=== PATIENT | female | born 1940 | race Caucasian/White ===

== ENCOUNTER 2019-12-10 20:00 | Emergency (ER) | payer MEDICARE, OTHER, SELFPAY ==
[2019-12-10 20:00] VITALS: BP 125/93; PULSE 121; RESP 35; TEMP 36.7; O2SAT 89
--- NOTE | 2019-12-10 20:07 | DI.RAD.S_ITS ---
PROCEDURE: XR CHEST 1V INDICATIONS: dyspnea, sob, cough, hx of COPD TECHNIQUE: One view of the chest was acquired. COMPARISON: [facility], , CHEST 1 VIEW, 02/05/2015, 19:46. [facility], , CHEST 1 VIEW, 11/10/2012, 20:53. FINDINGS: Surgical changes and devices: Pacemaking device and dual chamber leads normal. Lungs and pleura: Lungs are abnormal, with asymmetric alveolar infiltration on the right best seen at the right mid and lower lung in a pattern most consistent with pneumonia. No pleural effusions or pneumothorax. Mediastinum: Mediastinal contours appear normal. Heart size is normal. Bones and chest wall: No suspicious bony lesions. Overlying soft tissues appear unremarkable. IMPRESSION: Right mid and lower lung pneumonia, pacemaking device and dual chamber leads normal. Dictated by: Gorge Hoffman M.D. on 12/10/2019 at 20:50 Approved by: Gorge Hoffman M.D. on 12/10/2019 at 20:51
[2019-12-10] MEDS: ALBUTEROL/IPRATROPIUM 3 ML AMPUL INH (20:19)
[2019-12-10 20:20] VITALS: PULSE 111; RESP 24; O2SAT 95
--- NOTE | 2019-12-10 21:00 | DI.RAD.S_ITS ---
PATIENT NAME: TONYA LAST : 1940 EXAM DATE: 12/10/2019 20:31 ORD. : HANY FERGUSON CC: MODALITY: CR PATIENT TYPE: ER CONTRAST MEDIA: STATION ID: [id number] FLUORO TIME: PROCEDURE: XR CHEST 1V INDICATIONS: Shortness of breath TECHNIQUE: One view of the chest was acquired. COMPARISON: [facility], , CHEST 1 VIEW, 02/05/2015, 19:46. FINDINGS: Surgical changes and devices: None. Lungs and pleura: Lungs are abnormal with a generalized interstitial prominence and this has not definitely changed from 2015. This may reflect chronic CHF sequela. No pleural effusions or pneumothorax. Mediastinum: Mediastinal contours appear normal. Heart size is mildly enlarged, globally, previously the case. Bones and chest wall: No suspicious bony lesions. Overlying soft tissues appear unremarkable. IMPRESSION: Mild chronic CHF pattern without focal pneumonia or definite acute CHF superimposed. Given the new symptomatology, however, there likely is some degree of pulmonary edema in this patient. Dictated by: Gorge Hoffman M.D. on 12/10/2019 at 21:22 Approved by: Gorge Hoffman M.D. on 12/10/2019 at 21:23
[2019-12-10 21:03] LABS: Alanine Aminotransferase 40 IU/L (<35); Albumin 3.9 g/dL (3.5-5.0); Albumin Globulin Ratio 1.2 (1.0-2.8); Alkaline Phosphatase 139 U/L (38-126); Aspartate Aminotransferase 64 IU/L (14-36); BUN Creatinine Ratio 29.4 (6-22); Bilirubin Total 1.4 mg/dL (0.2-1.3); Blood Urea Nitrogen 47 mg/dL (7-17); Calcium 9.3 mg/dL (8.4-10.2); Carbon Dioxide 26 mmol/L (22-32); Chloride 99 mmol/L (98-107); Creatine Kinase 191 U/L (30-135); Globulin 3.2 g/dL (1.7-4.1); Glucose 117 mg/dL (80-110); HEMOLYSIS < 15 (0-50); Potassium 4.8 mmol/L (3.4-5.1); Sodium 136 mmol/L (137-145); Total Protein 7.1 g/dL (6.3-8.2)
[2019-12-10 21:06] LABS: Lipase < 10 U/L (23-300)
[2019-12-10 21:16] LABS: Lactate (Lactic Acid) 2.7 mmol/L (0.7-2.1)
[2019-12-10 21:18] VITALS: PULSE 105; RESP 23; O2SAT 92
[2019-12-10] MEDS: ALBUTEROL 2.5 MG/3 ML NEB (ADULT) 10 MG INH (21:18)
[2019-12-10 21:19] LABS: CKMB % Relative Index 1.1 % (1.5-5.0); Creatine Kinase MB 2.04 ng/mL (<2.37)
[2019-12-10] MEDS: methylPREDNISolone 125 MG/2 ML VIAL IV (21:20)
[2019-12-10] MEDS: SODIUM CHLORIDE 0.9% 1,000 ML 100 ML IV (21:20)
--- NOTE | 2019-12-10 21:24 | ED_ITS ---
HPI - SOB/Dyspnea <MARTY Mendoza - Last Filed: 12/11/19 05:03> General Chief Complaint: Shortness of Breath/Dyspnea Stated Complaint: COPD,coughing Time Seen by Provider: 12/10/19 20:07 Source: patient and family Mode of arrival: Wheelchair Limitations: no limitations History of Present Illness HPI Narrative: This is a 79-year-old female, former smoker, who presents to ED with her daughter from home with chief complain of short of breath, wheezing and nasty productive cough. Patient has history of non-O2 dependent COPD, insulin-dependent diabetes, and heart failure. Patient was exposed to family member who had cold symptoms a week ago and started cough which became worse last 2-3 days as non-stop coughing last night. Patient reports subjective fever as hot and sweaty and chills. Patient uses Advair for her maintenance COPD medication and reports used nebulizer treatment at home once a day for last couple of days. Daughter reports patient has decreased appetite and feeling weak. Patient has history of urinary urgency and has been limiting fluid intake due to this and not feeling thirsty. Patient received flu immunization about 10 days ago. Related Data Home Medications Medication Instructions Recorded Confirmed LEVOTHYROXINE SODIUM 100 mcg PO QDAY@0600 #0 11/10/12 POTASSIUM CHLORIDE (MICRO-K) 10 meq PO BID #0 11/10/12 simvastatin [Zocor] 20 mg PO HS #0 11/10/12 telmisartan-hydrochlorothiazid 1 tab PO QDAY #0 11/10/12 [Micardis HCT] Lantus U-100 Insulin 40 unit SUBCUT DAILY #10 ml 02/28/13 aspirin 81 mg PO QDAY #0 02/28/13 carvedilol [Coreg] 12.5 mg PO BID #0 02/28/13 fluticasone propion-salmeterol 1 puff INH BID #60 dose 02/28/13 [Advair Diskus] furosemide [Lasix] 20 mg PO BID #0 02/28/13 carvedilol 12/10/19 Allergies Allergy/AdvReac Type Severity Reaction Status Date / Time AMADO Inhibitors Allergy Unknown Verified 12/10/19 20:14 meloxicam Allergy Unknown Verified 12/10/19 20:13 Sulfa (Sulfonamide Allergy Unknown Verified 12/10/19 20:13 Antibiotics) Review of Systems <MARTY Mendoza - Last Filed: 12/11/19 05:03> Review of Systems Narrative: General: Reports fever, chills, fatigue, malaise, sweats. HEENT: Denies sinus pain, ear pain, sore throat, difficulty swallowing, dizziness, hoarse voice. Respiratory: See HPI Cardiovascular: Denies chest pain, palpitations, orthopnea, edema. Gastrointestinal: Denies nausea, vomiting, abdominal pain, diarrhea, constipation, melena. : Reports occasional urinary urgency and incontinence. Denies dysuria, frequency, hematuria, urinary retention. Musculoskeletal: Denies weakness, joint pain or bony pain. Skin: Denies rash, skin lesions, or other. Neurologic: Denies weakness, headache, numbness, change in speech, confusion, seizures, incoordination. Psychiatric: No concerning psychosocial issues. 12-point review of systems is negative except for those stated above. Patient History <MARTY Mendoza - Last Filed: 12/11/19 05:03> Medical History CHF (congestive heart failure) (Acute) Diabetes (Acute) High cholesterol (Acute) Hypertension (Acute) Hypothyroid (Acute) Social History Smoking Status: Former smoker Smoking Status: Former smoker alcohol intake frequency: 0-2 drinks per day Substance Use Type: does not use Exam <MARTY Mendoza - Last Filed: 12/11/19 05:03> Narrative Exam Narrative: GEN: Alert, oriented x 3, well-nourished, weak appearing and in moderate respiratory distress. Head: Normal cephalic, atraumatic. No scalp or temporal tenderness, palpable mass or rash. EYES: Pupils are equal, round, and reactive to light and accommodation. Extraocular muscles are intact bilaterally. There is no subconjunctival hemorrhage, exudate and sclera non-icteric. ENT: Bilateral auditory canals and tympanic membranes clear. Hearing grossly intact. Nose without bleeding, purulent discharge or deviation. Facial sinuses nontender to palpate. Mucous membrane moist, no mucosal lesion. Throat without erythema, tonsillar hypertrophy or exudate. Uvula in midline, airway patent. Neck: Trachea in midline. No JVD, non-tender without lymphadenopathy. No masses or thyroid megaly. Supple, non-tender and no meningeal signs. CARDIAC: Normal regular rate and A flutter rhythm without murmurs, gallops, or rubs. No chest wall tenderness. +1 peripheral edema and pallor with no cyanosis. Capillary refill is less than 2 seconds. RESPIRATORY: Audiable wheezing and wheez to ascultate in all lobes. Frequent nonproductive cough, no rales, or rhonchi. No stridor, moderate respiratory inc rease work of breathing with tachypnea and difficulty completing a sentence. ABD: Abdomen soft, nontender and non-distended. No guarding or rebound tenderness to palpate. Bowel sounds are normal in all 4 quadrants. There is no palpable masses or organomegaly. EXT: Full painless ROM of all extremities with no loss of sensation, strength, effusion or edema. SKIN: Warm, dry, normal color for patient. No erythema, lesions or rash over visible areas. BACK: Nontender without deformity or crepitance. No flank tenderness. NEUROLOGICAL: Alert and oriented to place, time and person. Sensation and motor function intact bilaterally. No facial droops, dysphasia. PSYCHIATRIC: Good judgement and reason, without hallucinations, abnormal affect or abnormal behaviors during the examination. Initial Vital Signs Initial Vital Signs: Vital Signs Temperature 98.1 F 12/10/19 20:00 Pulse Rate 121 H 12/10/19 20:00 Respiratory Rate 35 H 12/10/19 20:00 Blood Pressure 125/93 H 12/10/19 20:00 Pulse Oximetry 89 L 12/10/19 20:00 <[address] DO - Last Filed: 12/11/19 05:28> Initial Vital Signs Initial Vital Signs: Vital Signs Temperature 98.1 F 12/10/19 20:00 Pulse Rate 121 H 12/10/19 20:00 Respiratory Rate 35 H 12/10/19 20:00 Blood Pressure 125/93 H 12/10/19 20:00 Pulse Oximetry 89 L 12/10/19 20:00 Scores <Kartik MARTY Crisostomo - Last Filed: 12/11/19 05:03> CURB-65 Confusion: No BUN >19mg/dL (>7mmol/L): Yes Respiratory rate greater or equal to 30: Yes SBP <90mmHg or DBP less or equal to 60mmHg: No Age 65 or Older: Yes CURB-65 Total: 3 Score 0-1 Outpatient care, Score 2 Inpt vs. Obs, Score 3 or over Inpt admit with ICU for score of 4-5 GCS [place] coma scale eye opening: Spontaneous [place] coma scale verbal response: Orientated [place] coma scale motor response: Obey commands [place] coma scale total score: 15 Course <Kartik Jensen-ArtisMARTY - Last Filed: 12/11/19 05:03> Orders Ordered: ED Orders 12/10/19 20:40 B Type Natriuretic Peptide Stat Complete Blood Count AUTO DIFF Stat Comprehensive Metabolic Panel Stat Lactate (Lactic Acid) Stat Lipase Stat Procalcitonin Stat Troponin & CK Cardiac Panel Stat 12/10/19 20:58 RT Consult Eval and Treat NOW 12/10/19 21:30 Blood Culture Stat 12/10/19 22:08 EKG-12 Lead Stat 12/10/19 23:15 Troponin & CK Cardiac Panel Stat 12/10/19 23:20 Magnesium Stat 12/10/19 23:32 Arterial Blood Gas Stat 12/11/19 00:15 Basic Metabolic Panel Stat 12/11/19 01:12 B Type Natriuretic Peptide Stat 12/11/19 01:39 BiPAP Ventilatory Support RT PROTOCOL Discontinued Medications Albuterol (Ventolin) 10 mg INH NOW ONE Stop: 12/10/19 21:06 Last Admin: 12/10/19 21:18 Dose: 10 mg Documented by: ALAINA Albuterol (Ventolin) 10 mg INH [id number] [facility] Albuterol/Ipratropium (Duoneb) 3 ml INH NOW ONE Stop: 12/10/19 20:10 Last Admin: 12/10/19 20:19 Dose: 3 ml Documented by: ALAINA Guaifenesin/Codeine Phosphate (Guaifenesin/Codeine Liquid) 5 ml PO NOW ONE Stop: 12/10/19 22:47 Last Admin: 12/10/19 23:36 Dose: 5 ml Documented by: LEIA Ceftriaxone Sodium/Dextrose (Rocephin) 1 gm in 50 mls @ 100 mls/hr IV NOW ONE Stop: 12/10/19 21:30 Last Admin: 12/10/19 22:37 Dose: Not Given Documented by: LEIA Sodium Chloride (Normal Saline 0.9%) 1,000 mls @ 100 mls/hr IV CONT JOAQUIN Last Infusion: 12/11/19 04:35 Dose: 0 mls/hr Documented by: Infusion: 12/10/19 22:12 Dose: 0 mls/hr Documented by: Admin: 12/10/19 21:20 Dose: 100 mls/hr Documented by: LEIA Sodium Chloride (Normal Saline 0.9%) 1,843.17 mls @ 614.39 mls/hr 30 ml/kg infuse over 3 hr (1843.17 ml) IV NOW ONE Stop: 12/11/19 00:36 Last Infusion: 12/11/19 04:35 Dose: 0 mls/hr Documented by: Infusion: 12/11/19 00:44 Dose: 0 mls/hr Documented by: Admin: 12/10/19 22:12 Dose: 614.39 mls/hr Documented by: LEIA Levofloxacin (Levaquin) 750 mg in 150 mls @ 100 mls/hr IV NOW ONE Stop: 12/10/19 23:11 Last Infusion: 12/11/19 02:02 Dose: 0 mls/hr Documented by: Admin: 12/10/19 22:11 Dose: 100 mls/hr Documented by: LEIA Magnesium Sulfate (Magnesium Sulfate) 2 gm in 50 mls @ 50 mls/hr IV NOW ONE Stop: 12/11/19 00:56 Last Infusion: 12/11/19 02:01 Dose: 0 mls/hr Documented by: RAHUL Cosigned by: VIVI Admin: 12/11/19 00:28 Dose: 50 mls/hr Documented by: LEIA Cosigned by: RAHUL Methylprednisolone (Solu-Medrol 125 Mg Vial) 125 mg IV NOW ONE Stop: 12/10/19 20:59 Last Admin: 12/10/19 21:20 Dose: 125 mg Documented by: LEIA Vital Signs Vital signs: Vital Signs - 8 hr 12/10/19 22:00 12/10/19 22:30 12/11/19 00:24 Pulse Rate 110 H 111 H 110 H Respiratory Rate 32 H Blood Pressure Blood Pressure [Right Arm] 104/70 113/92 H Pulse Oximetry 94 94 92 12/11/19 00:26 12/11/19 00:51 12/11/19 01:39 Pulse Rate 110 H Respiratory Rate Blood Pressure 127/88 Blood Pressure [Right Arm] 144/77 H 129/97 H Pulse Oximetry 97 12/11/19 01:58 Pulse Rate 110 H Respiratory Rate 27 H Blood Pressure Blood Pressure [Right Arm] 120/71 Pulse Oximetry 90 L <[address], - Last Filed: 12/11/19 05:28> Orders Ordered: ED Orders 12/10/19 20:40 B Type Natriuretic Peptide Stat Complete Blood Count AUTO DIFF Stat Comprehensive Metabolic Panel Stat Lactate (Lactic Acid) Stat Lipase Stat Procalcitonin Stat Troponin & CK Cardiac Panel Stat 12/10/19 20:58 RT Consult Eval and Treat NOW 12/10/19 21:30 Blood Culture Stat 12/10/19 22:08 EKG-12 Lead Stat 12/10/19 23:15 Troponin & CK Cardiac Panel Stat 12/10/19 23:20 Magnesium Stat 12/10/19 23:32 Arterial Blood Gas Stat 12/11/19 00:15 Basic Metabolic Panel Stat 12/11/19 01:12 B Type Natriuretic Peptide Stat 12/11/19 01:39 BiPAP Ventilatory Support RT PROTOCOL Discontinued Medications Albuterol (Ventolin) 10 mg INH NOW ONE Stop: 12/10/19 21:06 Last Admin: 12/10/19 21:18 Dose: 10 mg Documented by: ALAINA Albuterol (Ventolin) 10 mg INH [id number] [facility] Albuterol/Ipratropium (Duoneb) 3 ml INH NOW ONE Stop: 12/10/19 20:10 Last Admin: 12/10/19 20:19 Dose: 3 ml Documented by: ALAINA Guaifenesin/Codeine Phosphate (Guaifenesin/Codeine Liquid) 5 ml PO NOW ONE Stop: 12/10/19 22:47 Last Admin: 12/10/19 23:36 Dose: 5 ml Documented by: LEIA Ceftriaxone Sodium/Dextrose (Rocephin) 1 gm in 50 mls @ 100 mls/hr IV NOW ONE Stop: 12/10/19 21:30 Last Admin: 12/10/19 22:37 Dose: Not Given Documented by: LEIA Sodium Chloride (Normal Saline 0.9%) 1,000 mls @ 100 mls/hr IV CONT JOAQUIN Last Infusion: 12/11/19 04:35 Dose: 0 mls/hr Documented by: Infusion: 12/10/19 22:12 Dose: 0 mls/hr Documented by: Admin: 12/10/19 21:20 Dose: 100 mls/hr Documented by: LEIA Sodium Chloride (Normal Saline 0.9%) 1,843.17 mls @ 614.39 mls/hr 30 ml/kg infuse over 3 hr (1843.17 ml) IV NOW ONE Stop: 12/11/19 00:36 Last Infusion: 12/11/19 04:35 Dose: 0 mls/hr Documented by: Infusion: 12/11/19 00:44 Dose: 0 mls/hr Documented by: Admin: 12/10/19 22:12 Dose: 614.39 mls/hr Documented by: LEIA Levofloxacin (Levaquin) 750 mg in 150 mls @ 100 mls/hr IV NOW ONE Stop: 12/10/19 23:11 Last Infusion: 12/11/19 02:02 Dose: 0 mls/hr Documented by: Admin: 12/10/19 22:11 Dose: 100 mls/hr Documented by: LEIA Magnesium Sulfate (Magnesium Sulfate) 2 gm in 50 mls @ 50 mls/hr IV NOW ONE Stop: 12/11/19 00:56 Last Infusion: 12/11/19 02:01 Dose: 0 mls/hr Documented by: RAHUL Cosigned by: VIVI Admin: 12/11/19 00:28 Dose: 50 mls/hr Documented by: LEIA Cosigned by: RAHUL Methylprednisolone (Solu-Medrol 125 Mg Vial) 125 mg IV NOW ONE Stop: 12/10/19 20:59 Last Admin: 12/10/19 21:20 Dose: 125 mg Documented by: LEIA Vital Signs Vital signs: Vital Signs - 8 hr 12/10/19 22:00 12/10/19 22:30 12/11/19 00:24 Pulse Rate 110 H 111 H 110 H Respiratory Rate 32 H Blood Pressure Blood Pressure [Right Arm] 104/70 113/92 H Pulse Oximetry 94 94 92 12/11/19 00:26 12/11/19 00:51 12/11/19 01:39 Pulse Rate 110 H Respiratory Rate Blood Pressure 127/88 Blood Pressure [Right Arm] 144/77 H 129/97 H Pulse Oximetry 97 12/11/19 01:58 Pulse Rate 110 H Respiratory Rate 27 H Blood Pressure Blood Pressure [Right Arm] 120/71 Pulse Oximetry 90 L MDM - SOB/Dyspnea <Kartik MARTY Crisostomo - Last Filed: 12/11/19 05:03> Differential Diagnosis Differential diagnosis: Likely acute exacerbation of chronic obstructive airways disease, congestive heart failure and community acquired pneumonia Medical Records Attestation: I reviewed the patient's medical records. Lab Data Attestation: I reviewed the patient's lab results. Result diagrams: 12/10/19 20:40 12/10/19 23:15 Labs: Lab Results 12/10/19 12/10/19 12/10/19 Range/Units 20:28 20:40 20:40 WBC 14.1 H (4.5-11.0) X10^3/uL RBC 4.25 (4.0-5.2) X10^6/uL Hgb 12.3 (12.0-16.0) g/dL Hct 37.2 (36-46) % MCV 87.4 (80-100) fL MCH 28.9 (26-34) PG MCHC 33.1 (30-36) % RDW 16.5 H (11.6-14.8) % Plt Count 376 (150-400) X10^3/uL Neut % (Auto) Not Reportable Lymph % (Auto) Not Reportable [place] % (Auto) Not Reportable Eos % (Auto) Not Reportable Baso % (Auto) Not Reportable Lymph # (Auto) Not Reportable [place] # (Auto) Not Reportable Baso # (Auto) Not Reportable Total Counted 100 Seg Neutrophils % 48.0 (38-70) % Band Neutrophils % 25.0 H (3-7) % Lymphocytes % (Manual) 17.0 L (25-45) % Monocytes % (Manual) 9.0 (2-11) % Eosinophils % (Manual) 1.0 L (2-4) % Neutrophils # (Manual) 57089 H (9332-6053) /uL Nucleated RBCs 1 H ( - 0) #/Diff RBC Morphology See below Anisocytosis 2+ H ABG pH (7.35-7.45) ABG pCO2 (35-45) mmHg ABG pO2 (80-100) mmHg ABG HCO3 (22-26) mmol/L ABG Total CO2 (21-31) mmol/L ABG O2 Saturation (95-100) % ABG Base Excess (-2-2) mmol/L FiO2 Sodium 136 L (137-145) mmol/L Potassium 4.8 (3.4-5.1) mmol/L Chloride 99 (98-107) mmol/L Carbon Dioxide 26 (22-32) mmol/L BUN 47 H (7-17) mg/dL Creatinine 1.60 H (0.52-1.04) mg/dL Estimated GFR 31.0 L (>60) mL/min BUN/Creatinine Ratio 29.4 H (6-22) Glucose 117 H (80-110) mg/dL Lactate (0.7-2.1) mmol/L Calcium 9.3 (8.4-10.2) mg/dL Magnesium (1.6-2.3) mg/dL Total Bilirubin 1.4 H (0.2-1.3) mg/dL AST 64 H (14-36) IU/L ALT 40 H (<35) IU/L Alkaline Phosphatase 139 H (38-126) U/L Total Creatine Kinase 191 H (30-135) U/L CK-MB (CK-2) 2.04 (<2.37) ng/mL CK-MB (CK-2) Rel Index 1.1 L (1.5-5.0) % Troponin I 0.050 H (0.01-0.034) ng/mL B-Natriuretic Peptide 1270 H (<100) Total Protein 7.1 (6.3-8.2) g/dL Albumin 3.9 (3.5-5.0) g/dL Globulin 3.2 (1.7-4.1) g/dL Albumin/Globulin Ratio 1.2 (1.0-2.8) Lipase < 10 L (23-300) U/L Procalcitonin (<0.5) ng/mL Chlamy pneumoniae PCR Not detected (Not Detect) Adenovirus (PCR) Not detected (Not Detect) B.parapertussis DNA PCR Not detected (Not Detect) Coronavirus OC43 (PCR) Not detected (Not Detect) Coronavirus HKU1 (PCR) Not detected (Not Detect) Coronavirus 229E (PCR) Not detected (Not Detect) Coronavirus NL63 (PCR) Not detected (Not Detect) Human Metapneumovir PCR Not detected (Not Detect) Influenza Type A (PCR) Not detected (Not Detect) Influenza Type B (PCR) Not detected (Not Detect) M. pneumoniae (PCR) Not detected (Not Detect) Parainfluenza 1 (PCR) Not detected (Not Detect) Parainfluenza 2 (PCR) Not detected (Not Detect) Parainfluenza 3 (PCR) Not detected (Not Detect) Parainfluenza 4 (PCR) Not detected (Not Detect) RSV (PCR) Not detected (Not Detect) Entero/Rhino (PCR) Not detected (Not Detect) 12/10/19 12/10/19 12/10/19 Range/Units 20:40 20:40 23:15 WBC (4.5-11.0) X10^3/uL RBC (4.0-5.2) X10^6/uL Hgb (12.0-16.0) g/dL Hct (36-46) % MCV (80-100) fL MCH (26-34) PG MCHC (30-36) % RDW (11.6-14.8) % Plt Count (150-400) X10^3/uL Neut % (Auto) Lymph % (Auto) [place] % (Auto) Eos % (Auto) Baso % (Auto) Lymph # (Auto) [place] # (Auto) Baso # (Auto) Total Counted Seg Neutrophils % (38-70) % Band Neutrophils % (3-7) % Lymphocytes % (Manual) (25-45) % Monocytes % (Manual) (2-11) % Eosinophils % (Manual) (2-4) % Neutrophils # (Manual) (7818-5593) /uL Nucleated RBCs ( - 0) #/Diff RBC Morphology Anisocytosis ABG pH (7.35-7.45) ABG pCO2 (35-45) mmHg ABG pO2 (80-100) mmHg ABG HCO3 (22-26) mmol/L ABG Total CO2 (21-31) mmol/L ABG O2 Saturation (95-100) % ABG Base Excess (-2-2) mmol/L FiO2 Sodium (137-145) mmol/L Potassium (3.4-5.1) mmol/L Chloride (98-107) mmol/L Carbon Dioxide (22-32) mmol/L BUN (7-17) mg/dL Creatinine (0.52-1.04) mg/dL Estimated GFR (>60) mL/min BUN/Creatinine Ratio (6-22) Glucose (80-110) mg/dL Lactate 2.7 H (0.7-2.1) mmol/L Calcium (8.4-10.2) mg/dL Magnesium (1.6-2.3) mg/dL Total Bilirubin (0.2-1.3) mg/dL AST (14-36) IU/L ALT (<35) IU/L Alkaline Phosphatase (38-126) U/L Total Creatine Kinase 180 H (30-135) U/L CK-MB (CK-2) 2.37 (<2.37) ng/mL CK-MB (CK-2) Rel Index 1.3 L (1.5-5.0) % Troponin I 0.043 H (0.01-0.034) ng/mL B-Natriuretic Peptide (<100) Total Protein (6.3-8.2) g/dL Albumin (3.5-5.0) g/dL Globulin (1.7-4.1) g/dL Albumin/Globulin Ratio (1.0-2.8) Lipase (23-300) U/L Procalcitonin 1.54 H (<0.5) ng/mL Chlamy pneumoniae PCR (Not Detect) Adenovirus (PCR) (Not Detect) B.parapertussis DNA PCR (Not Detect) Coronavirus OC43 (PCR) (Not Detect) Coronavirus HKU1 (PCR) (Not Detect) Coronavirus 229E (PCR) (Not Detect) Coronavirus NL63 (PCR) (Not Detect) Human Metapneumovir PCR (Not Detect) Influenza Type A (PCR) (Not Detect) Influenza Type B (PCR) (Not Detect) M. pneumoniae (PCR) (Not Detect) Parainfluenza 1 (PCR) (Not Detect) Parainfluenza 2 (PCR) (Not Detect) Parainfluenza 3 (PCR) (Not Detect) Parainfluenza 4 (PCR) (Not Detect) RSV (PCR) (Not Detect) Entero/Rhino (PCR) (Not Detect) 12/10/19 12/10/19 12/10/19 Range/Units 23:15 23:15 23:20 WBC (4.5-11.0) X10^3/uL RBC (4.0-5.2) X10^6/uL Hgb (12.0-16.0) g/dL Hct (36-46) % MCV (80-100) fL MCH (26-34) PG MCHC (30-36) % RDW (11.6-14.8) % Plt Count (150-400) X10^3/uL Neut % (Auto) Lymph % (Auto) [place] % (Auto) Eos % (Auto) Baso % (Auto) Lymph # (Auto) [place] # (Auto) Baso # (Auto) Total Counted Seg Neutrophils % (38-70) % Band Neutrophils % (3-7) % Lymphocytes % (Manual) (25-45) % Monocytes % (Manual) (2-11) % Eosinophils % (Manual) (2-4) % Neutrophils # (Manual) (4259-5355) /uL Nucleated RBCs ( - 0) #/Diff RBC Morphology Anisocytosis ABG pH (7.35-7.45) ABG pCO2 (35-45) mmHg ABG pO2 (80-100) mmHg ABG HCO3 (22-26) mmol/L ABG Total CO2 (21-31) mmol/L ABG O2 Saturation (95-100) % ABG Base Excess (-2-2) mmol/L FiO2 Sodium 138 (137-145) mmol/L Potassium 4.6 (3.4-5.1) mmol/L Chloride 103 (98-107) mmol/L Carbon Dioxide 23 (22-32) mmol/L BUN 47 H (7-17) mg/dL Creatinine 1.40 H (0.52-1.04) mg/dL Estimated GFR 36.2 L (>60) mL/min BUN/Creatinine Ratio 33.6 H (6-22) Glucose 115 H (80-110) mg/dL Lactate 1.5 (0.7-2.1) mmol/L Calcium 9.1 (8.4-10.2) mg/dL Magnesium 2.2 (1.6-2.3) mg/dL Total Bilirubin (0.2-1.3) mg/dL AST (14-36) IU/L ALT (<35) IU/L Alkaline Phosphatase (38-126) U/L Total Creatine Kinase (30-135) U/L CK-MB (CK-2) (<2.37) ng/mL CK-MB (CK-2) Rel Index (1.5-5.0) % Troponin I (0.01-0.034) ng/mL B-Natriuretic Peptide (<100) Total Protein (6.3-8.2) g/dL Albumin (3.5-5.0) g/dL Globulin (1.7-4.1) g/dL Albumin/Globulin Ratio (1.0-2.8) Lipase (23-300) U/L Procalcitonin (<0.5) ng/mL Chlamy pneumoniae PCR (Not Detect) Adenovirus (PCR) (Not Detect) B.parapertussis DNA PCR (Not Detect) Coronavirus OC43 (PCR) (Not Detect) Coronavirus HKU1 (PCR) (Not Detect) Coronavirus 229E (PCR) (Not Detect) Coronavirus NL63 (PCR) (Not Detect) Human Metapneumovir PCR (Not Detect) Influenza Type A (PCR) (Not Detect) Influenza Type B (PCR) (Not Detect) M. pneumoniae (PCR) (Not Detect) Parainfluenza 1 (PCR) (Not Detect) Parainfluenza 2 (PCR) (Not Detect) Parainfluenza 3 (PCR) (Not Detect) Parainfluenza 4 (PCR) (Not Detect) RSV (PCR) (Not Detect) Entero/Rhino (PCR) (Not Detect) 12/10/19 12/11/19 Range/Units 23:32 01:12 WBC (4.5-11.0) X10^3/uL RBC (4.0-5.2) X10^6/uL Hgb (12.0-16.0) g/dL Hct (36-46) % MCV (80-100) fL MCH (26-34) PG MCHC (30-36) % RDW (11.6-14.8) % Plt Count (150-400) X10^3/uL Neut % (Auto) Lymph % (Auto) [place] % (Auto) Eos % (Auto) Baso % (Auto) Lymph # (Auto) [place] # (Auto) Baso # (Auto) Total Counted Seg Neutrophils % (38-70) % Band Neutrophils % (3-7) % Lymphocytes % (Manual) (25-45) % Monocytes % (Manual) (2-11) % Eosinophils % (Manual) (2-4) % Neutrophils # (Manual) (3176-3395) /uL Nucleated RBCs ( - 0) #/Diff RBC Morphology Anisocytosis ABG pH 7.41 (7.35-7.45) ABG pCO2 39.8 (35-45) mmHg ABG pO2 38 L* (80-100) mmHg ABG HCO3 25 (22-26) mmol/L ABG Total CO2 26 (21-31) mmol/L ABG O2 Saturation 72 L* (95-100) % ABG Base Excess 0.0 (-2-2) mmol/L FiO2 28 Sodium (137-145) mmol/L Potassium (3.4-5.1) mmol/L Chloride (98-107) mmol/L Carbon Dioxide (22-32) mmol/L BUN (7-17) mg/dL Creatinine (0.52-1.04) mg/dL Estimated GFR (>60) mL/min BUN/Creatinine Ratio (6-22) Glucose (80-110) mg/dL Lactate (0.7-2.1) mmol/L Calcium (8.4-10.2) mg/dL Magnesium (1.6-2.3) mg/dL Total Bilirubin (0.2-1.3) mg/dL AST (14-36) IU/L ALT (<35) IU/L Alkaline Phosphatase (38-126) U/L Total Creatine Kinase (30-135) U/L CK-MB (CK-2) (<2.37) ng/mL CK-MB (CK-2) Rel Index (1.5-5.0) % Troponin I (0.01-0.034) ng/mL B-Natriuretic Peptide 1040 H (<100) Total Protein (6.3-8.2) g/dL Albumin (3.5-5.0) g/dL Globulin (1.7-4.1) g/dL Albumin/Globulin Ratio (1.0-2.8) Lipase (23-300) U/L Procalcitonin (<0.5) ng/mL Chlamy pneumoniae PCR (Not Detect) Adenovirus (PCR) (Not Detect) B.parapertussis DNA PCR (Not Detect) Coronavirus OC43 (PCR) (Not Detect) Coronavirus HKU1 (PCR) (Not Detect) Coronavirus 229E (PCR) (Not Detect) Coronavirus NL63 (PCR) (Not Detect) Human Metapneumovir PCR (Not Detect) Influenza Type A (PCR) (Not Detect) Influenza Type B (PCR) (Not Detect) M. pneumoniae (PCR) (Not Detect) Parainfluenza 1 (PCR) (Not Detect) Parainfluenza 2 (PCR) (Not Detect) Parainfluenza 3 (PCR) (Not Detect) Parainfluenza 4 (PCR) (Not Detect) RSV (PCR) (Not Detect) Entero/Rhino (PCR) (Not Detect) Imaging Data Chest x-ray: Radiologist's Impression: Reports indicates no focal consolidation. Mild chronic CHF with some degree of pulmonary edema. ECG Data Attestation: I personally reviewed and interpreted this ECG as follows: Prior ECG tracings: available for review Interpretation: Aflutter rate at 110 with RVR. Borderline R axis. Moderate ST depression in anterior and lateral leads. Previous EKGs in SR with PVCs Normal QRS, QT/QTc 346/383 MDM Narrative Medical decision making narrative: This is a 79-year-old female with history of non-O2 dependent COPD, type 2 diabetes, heart failure who presents to ED with short of breath and coughing for about a week. The patient arrived ED with hypoxia of 89% in RA with tachypnea of 35 and tachycardia of 121. Patient had a respiratory distress of increased work of breathing, unable to speak full sentences, pale appearance, audible wheezing. EKG showed new Aflutter rate in [address] depression, the patient denied any chest pain, dizziness. Leukocytosis of 14.1 with elevated lactate of 2.7 and procalcitonin of 1.54. The patient has new acute kidney injury evidence by BUN of 47, Cr of 1.6 and GFR of 31.0. Normal kidney function tests in February and March of 2018. Mildly increase Trop of 0.05 (0.01-0.034) with normal CK-MB. BNP of 1270 today. Negative respiratory panel test. Mildly elevated LFTs today w/o abdominal pain. CXR shows no focal infiltrates, mild chronic CHF and some degree of pulmonary edema. Hospitalist MARIANA Pennington was consulted for an admission and requested to trend troponin and to consult cardiology. Repeat Lactate of 1.8. Mg level of 2.2 and 2gm of IV Magnesium has ordered to replace for mild hypomagnasemia. Repeat Trop of 0.043. VBG is unremarkable with pH of 7.4/PCO2 39.8/PO2 38/HCO3 25/sO2 72%. The patient was evaluated several times and states breathing has been easier and improved o2 at 95-96% on 2L NC with improved wheezing and RR at 28-32/min. 0115-The patient has increased wheezing and mildly increased dyspnea with work of breathing. Fine crackles on lower lobes with wheezing on upper lobes. HR in 110's with o2 sat at 92-94% with RR at 34/min with BP of 127/88. Additional neb treatment and Bipap machine initiated. The patient tolerating the Bipap well. No UOP at this time w/o urgency. Bladder scanner shows about 40 ml of urine. Repeated Kidney function test and BNP with improvement: Cr 1.4/BUN 47/GFR 36.2 with BNP 1040. Admission to [facility] was not accepted by the hospitalist due to the complexity of the patient's condition and possible of needing dialysis. Attempted to transfer to [facility] but no bed availability. Consulted Dr. Doan at [facility] and he kindly accepted the patient's care. 0400-The patient is being transfer to [facility] by transfer team with bipap. Patient reports breathing is easier at this time and was able to actually get some rest. <Cory Way DO - Last Filed: 12/11/19 05:28> Lab Data Labs: Lab Results 12/10/19 12/10/19 12/10/19 Range/Units 20:28 20:40 20:40 WBC 14.1 H (4.5-11.0) X10^3/uL RBC 4.25 (4.0-5.2) X10^6/uL Hgb 12.3 (12.0-16.0) g/dL Hct 37.2 (36-46) % MCV 87.4 (80-100) fL MCH 28.9 (26-34) PG MCHC 33.1 (30-36) % RDW 16.5 H (11.6-14.8) % Plt Count 376 (150-400) X10^3/uL Neut % (Auto) Not Reportable Lymph % (Auto) Not Reportable [place] % (Auto) Not Reportable Eos % (Auto) Not Reportable Baso % (Auto) Not Reportable Lymph # (Auto) Not Reportable [place] # (Auto) Not Reportable Baso # (Auto) Not Reportable Total Counted 100 Seg Neutrophils % 48.0 (38-70) % Band Neutrophils % 25.0 H (3-7) % Lymphocytes % (Manual) 17.0 L (25-45) % Monocytes % (Manual) 9.0 (2-11) % Eosinophils % (Manual) 1.0 L (2-4) % Neutrophils # (Manual) 83840 H (2214-0538) /uL Nucleated RBCs 1 H ( - 0) #/Diff RBC Morphology See below Anisocytosis 2+ H ABG pH (7.35-7.45) ABG pCO2 (35-45) mmHg ABG pO2 (80-100) mmHg ABG HCO3 (22-26) mmol/L ABG Total CO2 (21-31) mmol/L ABG O2 Saturation (95-100) % ABG Base Excess (-2-2) mmol/L FiO2 Sodium 136 L (137-145) mmol/L Potassium 4.8 (3.4-5.1) mmol/L Chloride 99 (98-107) mmol/L Carbon Dioxide 26 (22-32) mmol/L BUN 47 H (7-17) mg/dL Creatinine 1.60 H (0.52-1.04) mg/dL Estimated GFR 31.0 L (>60) mL/min BUN/Creatinine Ratio 29.4 H (6-22) Glucose 117 H (80-110) mg/dL Lactate (0.7-2.1) mmol/L Calcium 9.3 (8.4-10.2) mg/dL Magnesium (1.6-2.3) mg/dL Total Bilirubin 1.4 H (0.2-1.3) mg/dL AST 64 H (14-36) IU/L ALT 40 H (<35) IU/L Alkaline Phosphatase 139 H (38-126) U/L Total Creatine Kinase 191 H (30-135) U/L CK-MB (CK-2) 2.04 (<2.37) ng/mL CK-MB (CK-2) Rel Index 1.1 L (1.5-5.0) % Troponin I 0.050 H (0.01-0.034) ng/mL B-Natriuretic Peptide 1270 H (<100) Total Protein 7.1 (6.3-8.2) g/dL Albumin 3.9 (3.5-5.0) g/dL Globulin 3.2 (1.7-4.1) g/dL Albumin/Globulin Ratio 1.2 (1.0-2.8) Lipase < 10 L (23-300) U/L Procalcitonin (<0.5) ng/mL Chlamy pneumoniae PCR Not detected (Not Detect) Adenovirus (PCR) Not detected (Not Detect) B.parapertussis DNA PCR Not detected (Not Detect) Coronavirus OC43 (PCR) Not detected (Not Detect) Coronavirus HKU1 (PCR) Not detected (Not Detect) Coronavirus 229E (PCR) Not detected (Not Detect) Coronavirus NL63 (PCR) Not detected (Not Detect) Human Metapneumovir PCR Not detected (Not Detect) Influenza Type A (PCR) Not detected (Not Detect) Influenza Type B (PCR) Not detected (Not Detect) M. pneumoniae (PCR) Not detected (Not Detect) Parainfluenza 1 (PCR) Not detected (Not Detect) Parainfluenza 2 (PCR) Not detected (Not Detect) Parainfluenza 3 (PCR) Not detected (Not Detect) Parainfluenza 4 (PCR) Not detected (Not Detect) RSV (PCR) Not detected (Not Detect) Entero/Rhino (PCR) Not detected (Not Detect) 12/10/19 12/10/19 12/10/19 Range/Units 20:40 20:40 23:15 WBC (4.5-11.0) X10^3/uL RBC (4.0-5.2) X10^6/uL Hgb (12.0-16.0) g/dL Hct (36-46) % MCV (80-100) fL MCH (26-34) PG MCHC (30-36) % RDW (11.6-14.8) % Plt Count (150-400) X10^3/uL Neut % (Auto) Lymph % (Auto) [place] % (Auto) Eos % (Auto) Baso % (Auto) Lymph # (Auto) [place] # (Auto) Baso # (Auto) Total Counted Seg Neutrophils % (38-70) % Band Neutrophils % (3-7) % Lymphocytes % (Manual) (25-45) % Monocytes % (Manual) (2-11) % Eosinophils % (Manual) (2-4) % Neutrophils # (Manual) (2147-5110) /uL Nucleated RBCs ( - 0) #/Diff RBC Morphology Anisocytosis ABG pH (7.35-7.45) ABG pCO2 (35-45) mmHg ABG pO2 (80-100) mmHg ABG HCO3 (22-26) mmol/L ABG Total CO2 (21-31) mmol/L ABG O2 Saturation (95-100) % ABG Base Excess (-2-2) mmol/L FiO2 Sodium (137-145) mmol/L Potassium (3.4-5.1) mmol/L Chloride (98-107) mmol/L Carbon Dioxide (22-32) mmol/L BUN (7-17) mg/dL Creatinine (0.52-1.04) mg/dL Estimated GFR (>60) mL/min BUN/Creatinine Ratio (6-22) Glucose (80-110) mg/dL Lactate 2.7 H (0.7-2.1) mmol/L Calcium (8.4-10.2) mg/dL Magnesium (1.6-2.3) mg/dL Total Bilirubin (0.2-1.3) mg/dL AST (14-36) IU/L ALT (<35) IU/L Alkaline Phosphatase (38-126) U/L Total Creatine Kinase 180 H (30-135) U/L CK-MB (CK-2) 2.37 (<2.37) ng/mL CK-MB (CK-2) Rel Index 1.3 L (1.5-5.0) % Troponin I 0.043 H (0.01-0.034) ng/mL B-Natriuretic Peptide (<100) Total Protein (6.3-8.2) g/dL Albumin (3.5-5.0) g/dL Globulin (1.7-4.1) g/dL Albumin/Globulin Ratio (1.0-2.8) Lipase (23-300) U/L Procalcitonin 1.54 H (<0.5) ng/mL Chlamy pneumoniae PCR (Not Detect) Adenovirus (PCR) (Not Detect) B.parapertussis DNA PCR (Not Detect) Coronavirus OC43 (PCR) (Not Detect) Coronavirus HKU1 (PCR) (Not Detect) Coronavirus 229E (PCR) (Not Detect) Coronavirus NL63 (PCR) (Not Detect) Human Metapneumovir PCR (Not Detect) Influenza Type A (PCR) (Not Detect) Influenza Type B (PCR) (Not Detect) M. pneumoniae (PCR) (Not Detect) Parainfluenza 1 (PCR) (Not Detect) Parainfluenza 2 (PCR) (Not Detect) Parainfluenza 3 (PCR) (Not Detect) Parainfluenza 4 (PCR) (Not Detect) RSV (PCR) (Not Detect) Entero/Rhino (PCR) (Not Detect) 12/10/19 12/10/19 12/10/19 Range/Units 23:15 23:15 23:20 WBC (4.5-11.0) X10^3/uL RBC (4.0-5.2) X10^6/uL Hgb (12.0-16.0) g/dL Hct (36-46) % MCV (80-100) fL MCH (26-34) PG MCHC (30-36) % RDW (11.6-14.8) % Plt Count (150-400) X10^3/uL Neut % (Auto) Lymph % (Auto) [place] % (Auto) Eos % (Auto) Baso % (Auto) Lymph # (Auto) [place] # (Auto) Baso # (Auto) Total Counted Seg Neutrophils % (38-70) % Band Neutrophils % (3-7) % Lymphocytes % (Manual) (25-45) % Monocytes % (Manual) (2-11) % Eosinophils % (Manual) (2-4) % Neutrophils # (Manual) (7959-7970) /uL Nucleated RBCs ( - 0) #/Diff RBC Morphology Anisocytosis ABG pH (7.35-7.45) ABG pCO2 (35-45) mmHg ABG pO2 (80-100) mmHg ABG HCO3 (22-26) mmol/L ABG Total CO2 (21-31) mmol/L ABG O2 Saturation (95-100) % ABG Base Excess (-2-2) mmol/L FiO2 Sodium 138 (137-145) mmol/L Potassium 4.6 (3.4-5.1) mmol/L Chloride 103 (98-107) mmol/L Carbon Dioxide 23 (22-32) mmol/L BUN 47 H (7-17) mg/dL Creatinine 1.40 H (0.52-1.04) mg/dL Estimated GFR 36.2 L (>60) mL/min BUN/Creatinine Ratio 33.6 H (6-22) Glucose 115 H (80-110) mg/dL Lactate 1.5 (0.7-2.1) mmol/L Calcium 9.1 (8.4-10.2) mg/dL Magnesium 2.2 (1.6-2.3) mg/dL Total Bilirubin (0.2-1.3) mg/dL AST (14-36) IU/L ALT (<35) IU/L Alkaline Phosphatase (38-126) U/L Total Creatine Kinase (30-135) U/L CK-MB (CK-2) (<2.37) ng/mL CK-MB (CK-2) Rel Index (1.5-5.0) % Troponin I (0.01-0.034) ng/mL B-Natriuretic Peptide (<100) Total Protein (6.3-8.2) g/dL Albumin (3.5-5.0) g/dL Globulin (1.7-4.1) g/dL Albumin/Globulin Ratio (1.0-2.8) Lipase (23-300) U/L Procalcitonin (<0.5) ng/mL Chlamy pneumoniae PCR (Not Detect) Adenovirus (PCR) (Not Detect) B.parapertussis DNA PCR (Not Detect) Coronavirus OC43 (PCR) (Not Detect) Coronavirus HKU1 (PCR) (Not Detect) Coronavirus 229E (PCR) (Not Detect) Coronavirus NL63 (PCR) (Not Detect) Human Metapneumovir PCR (Not Detect) Influenza Type A (PCR) (Not Detect) Influenza Type B (PCR) (Not Detect) M. pneumoniae (PCR) (Not Detect) Parainfluenza 1 (PCR) (Not Detect) Parainfluenza 2 (PCR) (Not Detect) Parainfluenza 3 (PCR) (Not Detect) Parainfluenza 4 (PCR) (Not Detect) RSV (PCR) (Not Detect) Entero/Rhino (PCR) (Not Detect) 12/10/19 12/11/19 Range/Units 23:32 01:12 WBC (4.5-11.0) X10^3/uL RBC (4.0-5.2) X10^6/uL Hgb (12.0-16.0) g/dL Hct (36-46) % MCV (80-100) fL MCH (26-34) PG MCHC (30-36) % RDW (11.6-14.8) % Plt Count (150-400) X10^3/uL Neut % (Auto) Lymph % (Auto) [place] % (Auto) Eos % (Auto) Baso % (Auto) Lymph # (Auto) [place] # (Auto) Baso # (Auto) Total Counted Seg Neutrophils % (38-70) % Band Neutrophils % (3-7) % Lymphocytes % (Manual) (25-45) % Monocytes % (Manual) (2-11) % Eosinophils % (Manual) (2-4) % Neutrophils # (Manual) (8276-6948) /uL Nucleated RBCs ( - 0) #/Diff RBC Morphology Anisocytosis ABG pH 7.41 (7.35-7.45) ABG pCO2 39.8 (35-45) mmHg ABG pO2 38 L* (80-100) mmHg ABG HCO3 25 (22-26) mmol/L ABG Total CO2 26 (21-31) mmol/L ABG O2 Saturation 72 L* (95-100) % ABG Base Excess 0.0 (-2-2) mmol/L FiO2 28 Sodium (137-145) mmol/L Potassium (3.4-5.1) mmol/L Chloride (98-107) mmol/L Carbon Dioxide (22-32) mmol/L BUN (7-17) mg/dL Creatinine (0.52-1.04) mg/dL Estimated GFR (>60) mL/min BUN/Creatinine Ratio (6-22) Glucose (80-110) mg/dL Lactate (0.7-2.1) mmol/L Calcium (8.4-10.2) mg/dL Magnesium (1.6-2.3) mg/dL Total Bilirubin (0.2-1.3) mg/dL AST (14-36) IU/L ALT (<35) IU/L Alkaline Phosphatase (38-126) U/L Total Creatine Kinase (30-135) U/L CK-MB (CK-2) (<2.37) ng/mL CK-MB (CK-2) Rel Index (1.5-5.0) % Troponin I (0.01-0.034) ng/mL B-Natriuretic Peptide 1040 H (<100) Total Protein (6.3-8.2) g/dL Albumin (3.5-5.0) g/dL Globulin (1.7-4.1) g/dL Albumin/Globulin Ratio (1.0-2.8) Lipase (23-300) U/L Procalcitonin (<0.5) ng/mL Chlamy pneumoniae PCR (Not Detect) Adenovirus (PCR) (Not Detect) B.parapertussis DNA PCR (Not Detect) Coronavirus OC43 (PCR) (Not Detect) Coronavirus HKU1 (PCR) (Not Detect) Coronavirus 229E (PCR) (Not Detect) Coronavirus NL63 (PCR) (Not Detect) Human Metapneumovir PCR (Not Detect) Influenza Type A (PCR) (Not Detect) Influenza Type B (PCR) (Not Detect) M. pneumoniae (PCR) (Not Detect) Parainfluenza 1 (PCR) (Not Detect) Parainfluenza 2 (PCR) (Not Detect) Parainfluenza 3 (PCR) (Not Detect) Parainfluenza 4 (PCR) (Not Detect) RSV (PCR) (Not Detect) Entero/Rhino (PCR) (Not Detect) Discharge Plan Departure Patient Disposition: [facility] Clinical Impression: Acute respiratory failure with hypoxia, ELO (acute kidney injury) Atrial flutter Qualifiers: Atrial flutter type: unspecified Qualified Code(s): I48.92 - Unspecified atrial flutter Sepsis Qualifiers: Sepsis type: sepsis due to unspecified organism Sepsis acute organ dysfunction status: unspecified Qualified Code(s): A41.9 - Sepsis, unspecified organism Discharge Date/Time: 12/11/19 04:37 Prescriptions: No Action POTASSIUM CHLORIDE (MICRO-K) 10 meq PO BID Qty: 0 RF: 0 simvastatin [Zocor] 20 MG tablet 20 mg PO HS Qty: 0 RF: 0 telmisartan-hydrochlorothiazid [Micardis HCT] 80 MG/12.5 MG tablet 1 tab PO QDAY Qty: 0 RF: 0 LEVOTHYROXINE SODIUM 100 mcg PO QDAY@0600 Qty: 0 RF: 0 carvedilol [Coreg] 12.5 MG tablet 12.5 mg PO BID Qty: 0 RF: 0 furosemide [Lasix] 20 MG tablet 20 mg PO BID Qty: 0 RF: 0 aspirin 81 MG tablet,delayed release (DR/EC) 81 mg PO QDAY Qty: 0 RF: 0 Lantus U-100 Insulin 100 UNIT/1 ML solution 40 unit subcut DAILY Qty: 10 RF: 0 fluticasone propion-salmeterol [Advair Diskus] 500 MCG/50 MCG blister with device 1 puff INH BID Qty: 60 RF: 0 carvedilol RF: 0 Referrals: Alexsandra Gracia PA-C [Primary Care Provider] -
[2019-12-10 21:25] VITALS: BP 127/82; PULSE 110
[2019-12-10 21:36] LABS: Hematocrit 37.2 % (36-46); Hemoglobin 12.3 g/dL (12.0-16.0); Mean Corpuscular HGB Conc 33.1 % (30-36); Mean Corpuscular Hemoglobin 28.9 PG (26-34); Mean Corpuscular Volume 87.4 fL (80-100); Platelet Count 376 X10^3/uL (150-400); Red Blood Cell Count 4.25 X10^6/uL (4.0-5.2); Red Cell Distribution Width 16.5 % (11.6-14.8); White Blood Cell Count 14.1 X10^3/uL (4.5-11.0)
[2019-12-10 21:37] LABS: Add Manual Diff / Slide Review YES
[2019-12-10 21:52] LABS: Procalcitonin 1.54 ng/mL (<0.5)
[2019-12-10 21:56] LABS: B Type Natriuretic Peptide 1270 (<100)
[2019-12-10 22:00] VITALS: BP 104/70; PULSE 110; O2SAT 94
[2019-12-10] MEDS: levoFLOXacin 750 MG/150 ML PIGGYBACK 100 MG IV (22:11)
[2019-12-10] MEDS: SODIUM CHLORIDE 0.9% 614.39 ML IV (22:12)
[2019-12-10 22:13] LABS: Adenovirus Not Detected (Not Detect); Bordetella pertussis Not Detected (Not Detect); Chlamydophila pneumoniae Not Detected (Not Detect); Coronavirus 229E Not Detected (Not Detect); Coronavirus HKU1 Not Detected (Not Detect); Coronavirus NL 63 Not Detected (Not Detect); Coronavirus OC43 Not Detected (Not Detect); Human Metapneumovirus Not Detected (Not Detect); Human Rhinovirus/Enterovirus Not Detected (Not Detect); Influenza A Not Detected (Not Detect); Influenza B Not Detected (Not Detect); Mycoplasma pneumoniae Not Detected (Not Detect); Parainfluenza Virus 1 Not Detected (Not Detect); Parainfluenza Virus 2 Not Detected (Not Detect); Parainfluenza Virus 3 Not Detected (Not Detect); Parainfluenza Virus 4 Not Detected (Not Detect); Respiratory Syncytial Virus Not Detected (Not Detect)
[2019-12-10 22:30] VITALS: BP 113/92; PULSE 111; RESP 32; O2SAT 94
[2019-12-10 23:08] LABS: Reflexed Lactate in 2 Hours Y
[2019-12-10] MEDS: CODEINE/GUAIFENESIN LIQUID 5ML UDC 5 ML PO (23:36)
[2019-12-10 23:44] LABS: Magnesium 2.2 mg/dL (1.6-2.3)
[2019-12-10 23:44] LABS: Creatine Kinase 180 U/L (30-135); Lactate 2HR (Lactic Acid Rflx) 1.5 mmol/L (0.7-2.1)
[2019-12-10 23:57] LABS: Troponin I 0.043 ng/mL (0.01-0.034)
[2019-12-11] LABS: CKMB % Relative Index 1.3 % (1.5-5.0); Creatine Kinase MB 2.37 ng/mL (<2.37)
[2019-12-11 00:24] VITALS: PULSE 110; O2SAT 92
[2019-12-11 00:26] VITALS: BP 144/77
[2019-12-11] MEDS: MAGNESIUM SULFATE 2 GM/50 ML PIGGYBACK IV (00:28)
[2019-12-11 00:51] VITALS: BP 129/97; PULSE 110; O2SAT 97
[2019-12-11 00:53] LABS: BUN Creatinine Ratio 33.6 (6-22); Blood Urea Nitrogen 47 mg/dL (7-17); Calcium 9.1 mg/dL (8.4-10.2); Carbon Dioxide 23 mmol/L (22-32); Chloride 103 mmol/L (98-107); Estimated Glomerular Filt Rate 36.2 mL/min (>60); Glucose 115 mg/dL (80-110); HEMOLYSIS < 15 (0-50); Potassium 4.6 mmol/L (3.4-5.1); Sodium 138 mmol/L (137-145)
[2019-12-11 01:39] VITALS: BP 127/88; PULSE 111; RESP 18; RESP 31; O2SAT 98
[2019-12-11 01:45] LABS: B Type Natriuretic Peptide 1040 (<100)
[2019-12-11 01:58] VITALS: BP 120/71; PULSE 110; RESP 27; O2SAT 90
[2019-12-11 05:18] LABS: Neutrophils Absolute Manual 10293 /uL (3000-5900); Nucleated Red Blood Cells 1 #/Diff; Total Cells Counted 100
[2019-12-11 05:19] LABS: Anisocytosis 2+
[2019-12-19 17:26] LABS: HCO3 VBG 25 mmol/L (23-28); Oxygen Saturation VBG 72 % (70-75); PCO2 VBG 39.8 mmHg (45-50); PO2 VBG 38 mmHg (35-45); Total CO2 VBG 26 mmol/L (24-29); pH VBG 7.41 (7.33-7.43)
== END 2019-12-11 04:37 | disposition short-term general hospital (02) ==
PROVIDERS: Emergency Provider Nurse Practitioner Family; Family Provider Physician Assistant Medical; PCP Physician Assistant Medical
DX: J96.01 Acute respiratory failure with hypoxia (principal); N17.9 Acute kidney failure, unspecified; I48.92 Unspecified atrial flutter; A41.9 Sepsis, unspecified organism; E83.42 Hypomagnesemia; R79.89 Other specified abnormal findings of blood chemistry
CPT/HCPCS: 36415; 36600; 51798; 71045; 80048; 80053; 82550; 82553; 82805; 83605; 83690; 83735; 83880; 84145; 84484; 85025; 87040; 87633; 93005; 93010; 94640; 94660; 96361; 96365; 96366; 96367; 96375; 99285; J1956; J2930; J7613